=== PATIENT | male | born 1980 | race Caucasian/White ===

== ENCOUNTER 2020-06-11 09:45 | Emergency (ER) | payer OTHER, SELFPAY ==
[2020-06-11 10:05] VITALS: BP 135/83; PULSE 80; RESP 18; TEMP 37.2; O2SAT 99; BMI 34.7
--- NOTE | 2020-06-11 10:13 | XR_ITS ---
EXAMINATION: XR CERVICAL SPINE XR THORACIC SPINE XR LUMBAR SPINE CLINICAL INFORMATION: Fall, pain. COMPARISON: None TECHNIQUE: Cervical spine 3 views, thoracic spine 3 views and lumbosacral spine 3 views obtained. FINDINGS: Cervical and thoracic spine: There is limited evaluation of the cervicothoracic junction despite obtaining a swimmer's view. No malalignment or compression fracture is seen. A mild right convex curvature of the upper thoracic spine and left convex curvature of the lower thoracic spine is identified. Lumbar spine: Alignment, vertebral body and disc height is maintained. No evidence of segmental instability or compression fracture or acute osseous abnormality. XR/XR thoracic spine 2V IMPRESSION: No visible fracture or malalignment is seen. There is limited assessment of the cervicothoracic junction. Correlate with symptomatology to determine if additional cross-sectional imaging is needed.
--- NOTE | 2020-06-11 10:13 | XR_ITS ---
EXAMINATION: XR CERVICAL SPINE XR THORACIC SPINE XR LUMBAR SPINE CLINICAL INFORMATION: Fall, pain. COMPARISON: None TECHNIQUE: Cervical spine 3 views, thoracic spine 3 views and lumbosacral spine 3 views obtained. FINDINGS: Cervical and thoracic spine: There is limited evaluation of the cervicothoracic junction despite obtaining a swimmer's view. No malalignment or compression fracture is seen. A mild right convex curvature of the upper thoracic spine and left convex curvature of the lower thoracic spine is identified. Lumbar spine: Alignment, vertebral body and disc height is maintained. No evidence of segmental instability or compression fracture or acute osseous abnormality. XR/XR lumbar spine 2-3V IMPRESSION: No visible fracture or malalignment is seen. There is limited assessment of the cervicothoracic junction. Correlate with symptomatology to determine if additional cross-sectional imaging is needed.
--- NOTE | 2020-06-11 10:13 | XR_ITS ---
EXAMINATION: XR CERVICAL SPINE XR THORACIC SPINE XR LUMBAR SPINE CLINICAL INFORMATION: Fall, pain. COMPARISON: None TECHNIQUE: Cervical spine 3 views, thoracic spine 3 views and lumbosacral spine 3 views obtained. FINDINGS: Cervical and thoracic spine: There is limited evaluation of the cervicothoracic junction despite obtaining a swimmer's view. No malalignment or compression fracture is seen. A mild right convex curvature of the upper thoracic spine and left convex curvature of the lower thoracic spine is identified. Lumbar spine: Alignment, vertebral body and disc height is maintained. No evidence of segmental instability or compression fracture or acute osseous abnormality. XR/XR cervical spine 2V IMPRESSION: No visible fracture or malalignment is seen. There is limited assessment of the cervicothoracic junction. Correlate with symptomatology to determine if additional cross-sectional imaging is needed.
--- NOTE | 2020-06-11 10:16 | ED_ITS ---
HPI - Fall General Chief Complaint: Fall Stated Complaint: FALL Time Seen by Provider: 06/11/20 10:04 Source: patient Mode of arrival: ambulatory Limitations: no limitations History of Present Illness HPI Narrative: 40-year-old male previously healthy here with back pain status post slip and fall yesterday. He tells me he was walking down the stairs and he slipped falling down about 5 stairs on his back. He denies hitting his head or loss of consciousness. He woke up today with continued back pain. He denies any headache, vision changes, vomiting, chest pain, abdominal pain. The patient is not on anticoagulation. MD complaint: fall Onset (ago): day(s) (<24hrs) Fall from: standing Fall witnessed: no Place fall occurred: home Loss of consciousness: none Prolonged down time: no Symptoms prior to fall: none Context: tripped/slipped Location of injury: neck and back Severity: mild Associated symptoms (after fall): neck pain Related Data Previous Rx's Medication Instructions Recorded cyclobenzaprine 10 mg PO TID PRN #10 tab 06/11/20 ibuprofen 600 mg PO Q8H PRN #20 tab 06/11/20 Allergies Allergy/AdvReac Type Severity Reaction Status Date / Time No Known Allergies Allergy Verified 06/11/20 09:51 Review of Systems Review of Systems: Yes all other systems are reviewed and are negative Constitutional: Constitutional: Reports no additional constitutional complaints, Denies body ache(s), Denies chills, Denies fever(s), Denies headache(s) and Denies weakness Eyes: Eyes: Reports no additional eye complaints and Denies change in vision ENT: Reports system reviewed and no additional complaints, except as documented, Denies dizziness, Denies headache(s), Denies nasal congestion, Denies nasal discharge and Reports neck pain Cardiovascular: Cardiovascular: Reports no additional cardiovascular complaints, Denies chest pain, Denies leg edema and Denies dyspnea Respiratory: Respiratory: Reports no additional respiratory complaints, Denies cough and Denies dyspnea Gastrointestinal: Gastrointestinal: Reports no additional gastrointestinal complaints, Denies abdominal pain, Denies diarrhea, Denies nausea and Denies vomiting Genitourinary: Genitourinary: Denies urinary incontinence Musculoskeletal: Musculoskeletal: Reports no additional musculoskeletal complaints, Reports back pain, Denies arthralgias, Denies joint swelling, Reports neck pain, Denies numbness and Denies tingling Integumentary/Breasts: Skin/Breast: Reports system reviewed and no additional complaints, except as docu and Denies rash Neurologic: Reports system reviewed and no additional complaints, except as documented, Denies Abnormal speech present, Denies dizziness, Denies headach e(s), Denies numbness, Denies tingling and Denies weakness PMFSH Past Medical History Attestation statement: The following information was validated with the patient. Source: old records reviewed and nursing notes reviewed Medical History HTN (hypertension) Social History Social History Advance Directives: No Advance Directives Information Provided: Yes Physical Exam Vital Signs: Vital Signs: Last Vital Signs Temp 98.9 F 06/11/20 10:05 Pulse 80 06/11/20 10:05 Resp 18 06/11/20 10:05 BP 135/83 06/11/20 10:05 Pulse Ox 99 06/11/20 10:05 Body Mass Index 34.7 Const: General: cooperative, healthy appearing, comfortable and no acute distress Orientation/consciousness: patient oriented x3 Limitations: no limitations HENMT: Head: Yes normal to inspection Ears: hearing grossly normal bilaterally General nose exam: Normal external nose present Face and sinus: Yes normal facial exam Mouth: Normal oral and palatal mucosa present Throat: Yes posterior oropharynx normal Eyes: General: appearance normal, both eyes and all related structures Pupils: Equal, round and reactive pupils present Neck: Neck: Yes normal visual inspection Chest: Chest palpation & inspection: normal inspection of the chest Resp: Effort & Inspection: normal respiratory effort Auscultation: clear to auscultation bilaterally Cardio: Rate: regular rate Rhythm: regular rhythm Peripheral pulses: Peripheral pulses 2+ throughout GI: Inspection: Yes normal to inspection Palpation (GI): Soft to palpation and nontender Auscultation: normal bowel sounds Back/Spine/Pelvis: Other: Patient has both thoracic, lumbar and cervical tenderness diffusely. There is no step-offs or deformities. There is full range of motion. There is no obvious ecchymosis or deformity Thoracic/Lumbar Spine: thoracic and lumbar spine normal to inspection Skin: General skin exam: no rashes or lesions noted Neuro: General: patient oriented x3, no focal motor deficits and normal sensation to monofilament Cranial nerves: Yes CN's II-XII intact bilaterally, Yes Equal, round and reactive pupils present, Yes Bilaterally intact EOM pre sent, Yes Nystagmus not present, Yes Normal facial strength present, Yes Midline tongue present and Yes Normal gag reflex present Cognition (Neuro): normal cognition Speech: No Abnormal speech present Gait exam (Neuro): Normal gait present Motor exam (neuro): 5/5 motor strength present throughout Sensory Exam: Normal double simultaneous stimulation for sensation Deep tendon reflexes (DTR's): Right patellar reflex intensity grade: 2+, Left patellar reflex intensity grade: 2+, Right ankle reflex intensity grade: 2+ and Left ankle reflex intensity grade: 2+ Coordination: [id number] test normal, [id number] test normal and tandem gait normal Extrem: General: Yes normal to inspection Course Course Course Narrative: 40-year-old male here with neck, back pain status post mechanical fall. Normal neurological exam. No red flag symptoms. Will check imaging. 1100-images unremarkable. Patient is feeling improved after receiving analgesia here. Likely contusion. Reviewed worrisome signs and symptoms and when to r eturn to the emergency department. Comfortable discharge home. MDM - Fall Medical Records Attestation: I reviewed the patient's medical records. Lab Data Attestation: I reviewed the patient's lab results. Imaging Data cervical xry: Attestation: I personally reviewed and interpreted this imaging study as follows: Radiologist's impression: XAMINATION: XR CERVICAL SPINE XR THORACIC SPINE XR LUMBAR SPINE CLINICAL INFORMATION: Fall, pain. COMPARISON: None TECHNIQUE: Cervical spine 3 views, thoracic spine 3 views and lumbosacral spine 3 views obtained. FINDINGS: Cervical and thoracic spine: There is limited evaluation of the cervicothoracic junction despite obtaining a swimmer's view. No malalignment or compression fracture is seen. A mild right convex curvature of the upper thoracic spine and left convex curvature of the lower thoracic spine is identified. Lumbar spine: Alignment, vertebral body and disc height is maintained. No evidence of segmental instability or compression fracture or acute osseous abnormality. XR/XR cervical spine 2V IMPRESSION: No visible fracture or malalignment is seen. There is limited assessment of the cervicothoracic junction. Correlate with symptomatology to determine if additional cross-sectional imaging is needed. thoracic xray: Attestation: I personally reviewed and interpreted this imaging study as follows: Radiologist's impression: CLINICAL INFORMATION: Fall, pain. COMPARISON: None TECHNIQUE: Cervical spine 3 views, thoracic spine 3 views and lumbosacral spine 3 views obtained. FINDINGS: Cervical and thoracic spine: There is limited evaluation of the cervicothoracic junction despite obtaining a swimmer's view. No malalignment or compression fracture is seen. A mild right convex curvature of the upper thoracic spine and left convex curvature of the lower thoracic spine is identified. Lumbar spine: Alignment, vertebral body and disc height is maintained. No evidence of segmental instability or compression fracture or acute osseous abnormality. XR/XR thoracic spine 2V IMPRESSION: No visible fracture or malalignment is seen. There is limited assessment of the cervicothoracic junction. Correlate with symptomatology to determine if additional cross-sectional imaging is needed. lumbar spine: Attestation: I personally reviewed and interpreted this imaging study as follows: Radiologist's impression: EXAMINATION: XR CERVICAL SPINE XR THORACIC SPINE XR LUMBAR SPINE CLINICAL INFORMATION: Fall, pain. COMPARISON: None TECHNIQUE: Cervical spine 3 views, thoracic spine 3 views and lumbosacral spine 3 views obtained. FINDINGS: Cervical and thoracic spine: There is limited evaluation of the cervicothoracic junction despite obtaining a swimmer's view. No malalignment or compression fracture is seen. A mild right convex curvature of the upper thoracic spine and left convex curvature of the lower thoracic spine is identified. Lumbar spine: Alignment, vertebral body and disc height is maintained. No evidence of segmental instability or compression fracture or acute osseous abnormality. XR/XR lumbar spine 2-3V IMPRESSION: No visible fracture or malalignment is seen. There is limited assessment of the cervicothoracic junction. Correlate with symptomatology to determine if additional cross-sectional imaging is needed. Discharge Plan Discharge Clinical Impression: Contusion Qualifiers: Encounter type: initial encounter Contusion area: lower back Qualified Code(s): S30.0XXA - Contusion of lower back and pelvis, initial encounter Patient Disposition: Home, Self-Care Instructions: Contusion in Adults (ED) Additional Instructions: Ice to the area Gentle stretching No heavy lifting or bending Prescriptions: New ibuprofen 600 mg tablet 600 mg PO Q8H PRN (Reason: pain) Qty: 20 RF: 0 cyclobenzaprine 10 mg tablet 10 mg PO TID PRN (Reason: muscle spasm) Qty: 10 RF: 0 Referrals: Pamela Wilson MD [Primary Care Provider] - 2 days Stand Alone Forms: Work/School Release Interventions: ED Discharge Assessment Last Done: 06/11/20 11:50 Discharge Date/Time: 06/11/20 11:45
[2020-06-11] MEDS: Ketorolac Tromethamine 60 MG/2 ML VIAL IM (10:54)
== END 2020-06-11 11:45 | disposition home or self-care (01) ==
PROVIDERS: Emergency Provider Emergency Medicine; PCP Internal Medicine
DX: S30.0XXA Contusion of lower back and pelvis, initial encounter (principal); W10.8XXA Fall (on) (from) other stairs and steps, initial encounter; I10 Essential (primary) hypertension; Y93.9 Activity, unspecified; Y92.9 Unspecified place or not applicable; Y99.9 Unspecified external cause status
CPT/HCPCS: 72040; 72070; 72100; 96372; 99283; 99284; J1885

== ENCOUNTER 2020-08-21 10:48 | Outpatient (RCR) | payer OTHER, SELFPAY | END 2021-08-17 14:16 | disposition home or self-care (01) | LOC: HO.PT 10:48 | PROVIDERS: PCP Internal Medicine; Visit Provider Internal Medicine | DX: M54.5 Low back pain (principal) ==